=== PATIENT | female | born 1955 | race Hispanic/Latino ===

== ENCOUNTER 2017-03-16 00:25 | Inpatient (IN) | payer MEDICAID ==
[2017-03-16 00:25] VITALS: BMI 46.3
[2017-03-16 01:38] LABS: BASO # 0.1 K/uL (0.0-0.2); BASO % 0.6 % (0.0-2.0); EOS % 0.5 % (0.0-4.0)
[2017-03-16 01:42] LABS: EOS # 0.1 K/uL (0.0-0.7); HEMATOCRIT 44.5 % (34.0-47.0); LYMPH # 1.2 K/uL (1.0-4.3); MEAN CELL VOLUME 84.8 fL (81.0-99.0); MEAN CORPUSCULAR HEMOGLOBIN 28.9 pg (27.0-31.0); MEAN CORPUSCULAR HGB CONC 34.1 g/dL (33.0-37.0); MEAN PLATELET VOLUME 8.8 fL (7.2-11.7); MONO # 0.4 K/uL (0.0-0.8); MONO % 3.6 % (0.0-10.0); RED CELL DISTRIBUTION WIDTH 13.9 % (11.5-14.5); WHITE BLOOD COUNT 10.2 K/uL (4.8-10.8)
[2017-03-16] MEDS ORDERED: Iohexol 240 (50 ml) PO STA (01:47)
[2017-03-16 01:50] LABS: ALB/GLOB RATIO 1.3 (1.0-2.1); BILIRUBIN,TOTAL 1.1 mg/dL (0.2-1.3); CALCIUM 8.6 mg/dl (8.6-10.4); GFR AFRICAN-AMERICAN > 60; GLUCOSE,RANDOM 125 mg/dL (65-105); TOTAL PROTEIN 7.1 g/dL (6.3-8.3)
[2017-03-16 01:50] LABS: RBC URINE 4 /hpf (0-3); URINE BACTERIA RARE (<OCC); URINE BILIRUBIN NEGATIVE (NEGATIVE); URINE BLOOD NEGATIVE (NEGATIVE); URINE COLOR Amber (YELLOW); URINE GLUCOSE (UA) NORMAL (Normal); URINE KETONE 1+ mg/dL (NEGATIVE); URINE LEUKOCYTE ESTERASE NEG Leu/uL (Negative); URINE PROTEIN 2+ mg/dL (NEGATIVE); WBC URINE 5 /hpf (0-5)
[2017-03-16 01:51] LABS: ALKALINE PHOSPHATASE 83 U/L (38-126); ALT/SGPT 44 U/L (9-52); AST/SGOT 41 U/L (14-36); BLOOD UREA NITROGEN 21 mg/dL (7-17); CARBON DIOXIDE 27 mmol/L (22-30); CHLORIDE 97 mmol/L (98-107); POTASSIUM 3.3 mmol/L (3.6-5.2); SODIUM 135 mmol/L (132-148)
[2017-03-16] MEDS ORDERED: Iohexol 240 (50 ml) ONE (01:56)
[2017-03-16] MEDS ORDERED: Lactated Ringer's 1,000 ML IV SCH ×2 (02:15→05:15)
--- NOTE | 2017-03-16 02:29 | C.PDOC ---
History Of Present Illness 61 year old female with a Hx of HTN presents to the ER with a complaint of abdominal cramping and multiple episodes of vomiting since earlier today. Patient has a SHx of prior vertical 40 years ago and lap kamlesh 2 years ago; since then patient has had an incisional hernia to the site on right side. Denies fever or chills. last bm was Friday morning. Time Seen by Provider: 03/16/17 01:13 Chief Complaint (Nursing): Abdominal Pain History Per: Patient History/Exam Limitations: no limitations Current Symptoms Are (Timing): Still Present Radiation Of Pain To:: None Quality Of Discomfort: Cramping Associated Symptoms: Vomiting. denies: Fever, Chills Exacerbating Factors: None Alleviating Factors: None Recent travel outside of the [place]: No Past Medical History Reviewed: Historical Data, Nursing Documentation, Vital Signs Vital Signs: Last Vital Signs Temp 97.3 F L 03/16/17 15:00 Pulse 90 03/16/17 15:00 Resp 20 03/16/17 15:00 BP 137/84 03/16/17 15:00 Pulse Ox 95 03/16/17 18:47 - Medical History PMH: HTN, Pneumonia (three yrs ago) - [facility] Procedures CLOSURE SKIN & SUBCUTANEOUS NEC (01/22/07) ENDOSCOPIC REMOVAL OF STONE(S) FROM BILIARY TRACT (01/04/15) ENDOSCOPIC SPHINCTEROTOMY AND PAPILLOTOMY (01/04/15) INTRAOPER CHOLANGIOGRAM (01/04/15) LAPAROSCOPIC CHOLECYSTECTOMY (01/04/15) Family History: States: Unknown Family Hx - Social History Hx Alcohol Use: No Hx Substance Use: No - Immunization History Hx Tetanus Toxoid Vaccination: No Hx Influenza Vaccination: No Hx Pneumococcal Vaccination: No Review Of Systems Constitutional: Negative for: Fever, Chills Gastrointestinal: Positive for: Nausea, Abdominal Pain Physical Exam - Physical Exam Appears: Non-toxic Skin: Normal Color, Warm, Dry Head: Atraumatic, Normacephalic Oral Mucosa: Dry Chest: Symmetrical, No Tenderness Cardiovascular: Rhythm Regular Respiratory: Normal Breath Sounds, No Rales, No Rhonchi, No Wheezing Gastrointestinal/Abdominal: Bowel Sounds (Hyperactive), Soft, Tenderness (lower abdomen bilateral), No Distention, No Guarding, Other (Old vertical scar distal from the umbilicus with firm, mildly tender nonreducible mass to proximal right aspect.) Neurological/Psych: Oriented x3, Normal Speech, Other (No focal deficits) ED Course And Treatment - Laboratory Results Result Diagrams: 03/16/17 01:32 03/16/17 01:32 O2 Sat by Pulse Oximetry: 95 (Room air) Pulse Ox Interpretation: Normal Medical Decision Making Medical Decision Making: CT abd/pel, blood work, and urinalysis ordered. IV fluids and zofran administered. [address] scan result received from [facility]; surgical first assistant paged. [address] Noreen Krause, will admit to her service. Disposition Discussed With Dr.: Jerry Krause Doctor Will See Patient In The: Hospital - Disposition Disposition: HOME/ ROUTINE Disposition Time: 05:44 Condition: SERIOUS - Clinical Impression Clinical Impression: SBO (small bowel obstruction) - Scribe Statement The provider has reviewed the documentation as recorded by the Scribe Shantanu Jenkins All medical record entries made by the Scribe were at my direction and personally dictated by me. I have reviewed the chart and agree that the record accurately reflects my personal performance of the history, physical exam, medical decision making, and the department course for this patient. I have also personally directed, reviewed, and agree with the discharge instructions and disposition. Decision To Admit - Pt Status Changed To: Hospital Disposition Of: Inpatient - Admit Certification Admit to Inpatient:: After my assessment, the patient will require hospitalization for at least two midnights. This is because of the severity of symptoms shown, intensity of services needed, and/or the medical risk in this patient being treated as an outpatient. - InPatient: Physician Admission Certification:: for resolution of sbo - . Bed Request Type: Regular Admitting Physician: Jerry Krause Patient Diagnosis: SBO (small bowel obstruction)
[2017-03-16] MEDS ORDERED: Iodixanol 320 mg/ml 150 ml Bottle IV ONE ×2 (03:29→05:12)
--- NOTE | 2017-03-16 04:53 | CT ---
EXAM: CT Abdomen and Pelvis With Intravenous Contrast CLINICAL HISTORY: 61 years old, female; Pain; Abdominal pain; Generalized; Additional info: Abd pain TECHNIQUE: Axial computed tomography images of the abdomen and pelvis with intravenous contrast. All CT scans at this facility use one or more dose reduction techniques, viz.: automated exposure control; ma/kV adjustment per patient size (including targeted exams where dose is matched to indication; i.e. head); or iterative reconstruction technique. Coronal and sagittal reformatted images were created and reviewed. CONTRAST: 100 mL of [id number] administered intravenously. COMPARISON: No relevant prior studies available. FINDINGS: Lower thorax: Minimal atelectasis/scarring. Contrast within esophagus may represent reflux. ABDOMEN: Liver: Fatty infiltration. Gallbladder and bile ducts: Cholecystectomy. No ductal dilation. Pancreas: No ductal dilation. No mass. Spleen: No splenomegaly. Adrenals: No mass. Kidneys and ureters: No mass. No hydronephrosis. Stomach and bowel: Moderate ventral hernia containing fat, loop of small bowel, portion of transverse colon. Multiple loops of mild to moderately dilated small bowel proximal to hernia. Nondistended loops of small bowel distal to hernia. No definite mural thickening. Probable underdistention of LEFT colon. Appendix: No findings to suggest acute appendicitis. PELVIS: Bladder: Unremarkable. Reproductive: Mild lobulation of uterus. ABDOMEN and PELVIS: Intraperitoneal space: No significant fluid collection. No free air. Bones/joints: Degenerative changes of spine. No acute fracture. Soft tissues: Unremarkable. Vasculature: Unremarkable. No aneurysm. Lymph nodes: No pathologically enlarged lymph nodes. IMPRESSION: 1. Ventral hernia containing bowel with resultant obstruction. 2. Possible fibroid uterus. Consider ultrasound. 3. Incidental/non-acute findings are described above.
[2017-03-16] MEDS ORDERED: HYDROmorphone 0.5 mg/0.5 ml ISec IVP STA (05:12)
[2017-03-16] MEDS ORDERED: Lactated Ringer's 1,000 ML ONE (05:31)
[2017-03-16] MEDS ORDERED: HYDROmorphone 0.5 mg/0.5 ml ISec ONE ×2 (05:31→10:30)
--- NOTE | 2017-03-16 07:10 | CP.PCM.HP ---
History of Present Illness - History of Present Illness History of Present Illness: H&P Surgery- Dr. Krause 61F pmhx of HTN presents to [facility] ED with generalized abdominal pain w/ associated nausea and non-bloody, non-bilious vomiting that started on Friday morning. Abdominal pain is consistent and progressively got worse. During encounter patient was given pain meds and abd pain progressively got better. Friday patient reports to have a normal non-bloody bowel movement. Patient reports to having a ventral/incisional hernia for the last 2 years. No associated pain w/ hernia. currently denies: Fevers, chills, chest pain, shortness of breath, nausea, vomiting, diarrhea, headaches, numbness/tingling in extremities PMH: HTN PSH: Lap kamlesh 2 years ago, x4 ALL: NKDA SocialHx: Denies tobacco, ETOH, recreational drug use Present on Admission - Present on Admission Any Indicators Present on Admission: No Review of Systems - Review of Systems All systems: reviewed and no additional remarkable complaints except - Constitutional Constitutional: As Per HPI Past Patient History - Infectious Disease Hx of Infectious Diseases: None - Tetanus Immunizations Tetanus Immunization: Unknown - Past Medical History & Family History Past Medical History?: Yes - Past Social History Smoking Status: Never Smoked - CARDIAC Hx Hypertension: Yes - PULMONARY Hx Pneumonia: Yes (three yrs ago) - NEUROLOGICAL Hx Neurological Disorder: No - HEENT Hx HEENT Problems: No - RENAL Hx Chronic Kidney Disease: No - ENDOCRINE/METABOLIC Hx Endocrine Disorders: No - HEMATOLOGICAL/ONCOLOGICAL Hx Blood Disorders: No Hx Blood Transfusions: No - INTEGUMENTARY Hx Dermatological Problems: No - MUSCULOSKELETAL/RHEUMATOLOGICAL Hx Musculoskeletal Disorders: No Hx Falls: No - GASTROINTESTINAL Hx Gastrointestinal Disorders: No - GENITOURINARY/GYNECOLOGICAL Hx Genitourinary Disorders: No - PSYCHIATRIC Hx Substance Use: No - SURGICAL HISTORY Hx Surgeries: Yes Hx Section: Yes - ANESTHESIA Hx Anesthesia: No Hx Anesthesia Reactions: No Hx Malignant Hyperthermia: No Meds Allergies/Adverse Reactions: Allergies Allergy/AdvReac Type Severity Reaction Status Date / Time No Known Allergies Allergy Verified 01/04/15 17:05 Physical Exam - Constitutional Appears: Non-toxic, No Acute Distress - Eye Exam Eye Exam: EOMI. absent: Scleral icterus - ENT Exam ENT Exam: Mucous Membranes Moist - Respiratory Exam Respiratory Exam: NORMAL BREATHING PATTERN. absent: Accessory Muscle Use, Respiratory Distress - Cardiovascular Exam Cardiovascular Exam: +S1, +S2. absent: Bradycardia, Tachycardia - GI/Abdominal Exam GI & Abdominal Exam: Distended, Hernia, Soft. absent: Firm, Guarding, Rigid, Tenderness Additional comments: ventral hernia partially reduced at bedside. unable to get entire bowel contents back through hernia - Extremities Exam Extremities exam: Positive for: normal inspection. Negative for: calf tenderness - Neurological Exam Neurological exam: Alert, Oriented x3 - Psychiatric Exam Psychiatric exam: Normal Affect - Skin Skin Exam: Intact, Warm Results - Vital Signs Recent Vital Signs: Last Vital Signs Temp 97.7 F 03/16/17 00:30 Pulse 100 H 03/16/17 00:30 Resp 20 03/16/17 00:30 BP 126/80 03/16/17 00:30 Pulse Ox 95 03/16/17 05:45 - Labs Result Diagrams: 03/16/17 01:32 03/16/17 01:32 Labs: Laboratory Results - last 24 hr 03/16/17 03/16/17 03/16/17 01:32 01:32 01:43 WBC 10.2 RBC 5.25 H Hgb 15.2 Hct 44.5 MCV 84.8 MCH 28.9 MCHC 34.1 RDW 13.9 Plt Count 294 MPV 8.8 Neut % (Auto) 83.3 H Lymph % (Auto) 12.0 L [place] % (Auto) 3.6 Eos % (Auto) 0.5 Baso % (Auto) 0.6 Neut # 8.5 H Lymph # 1.2 [place] # 0.4 Eos # 0.1 Baso # 0.1 Sodium 135 Potassium 3.3 L Chloride 97 L Carbon Dioxide 27 Anion Gap 15 BUN 21 H Creatinine 0.5 L Est GFR ( Amer) > 60 Est GFR (Non-Af Amer) > 60 Random Glucose 125 H Calcium 8.6 Total Bilirubin 1.1 AST 41 H ALT 44 Alkaline Phosphatase 83 Total Protein 7.1 Albumin 4.1 Globulin 3.0 Albumin/Globulin Ratio 1.3 Lipase 51 Urine Color [place] Urine Clarity Hazy Urine pH 5.0 Ur Specific [place] 1.029 Urine Protein 2+ H Urine Glucose (UA) Normal Urine Ketones 1+ H Urine Blood Negative Urine Nitrate Negative Urine Bilirubin Negative Urine Urobilinogen 2.0 H Ur Leukocyte Esterase Neg Urine WBC (Auto) 5 Urine RBC (Auto) 4 H Ur Squamous Epith Cells 30 H Urine Bacteria Rare Assessment & Plan - Assessment and Plan (Free Text) Assessment: 61F w/ ventral/incisional hernia Plan: will advance to regular diet serial abdominal exams IVF GI/DVT ppx anti-emetic and pain control PRN discussed w/ Dr. Jimi Tee PGY1
[2017-03-16] MEDS: Lactated Ringer's 1,000 ML IV SCH ×2 (07:21→14:43)
[2017-03-16] MEDS: HYDROmorphone 0.5 mg/0.5 ml ISec IVP PRN ×2 (10:27→14:41)
[2017-03-16 14:13] VITALS: RESP 20
[2017-03-16 16:54] VITALS: BP 137/84; PULSE 90; TEMP 97.3
[2017-03-16 18:48] VITALS: O2SAT 95
== END 2017-03-16 20:23 | disposition home or self-care (01) | DRG 188 ==
LOC: C.ER 00:25 → C.9E 05:42 → C.3T 11:48
PROVIDERS: ADMIT Specialist; ATTEND Specialist
DX: K43.9 Ventral hernia without obstruction or gangrene (principal); K56.609 Unspecified intestinal obstruction, unspecified as to partial versus complete obstruction; I10 Essential (primary) hypertension

== ENCOUNTER 2017-03-18 12:09 | Inpatient (IN) | payer MEDICAID ==
[2017-03-18 12:10] VITALS: BMI 46.3
[2017-03-18] MEDS ORDERED: Sodium Chloride 0.9% 1,000 ML IV ONE (14:39)
--- NOTE | 2017-03-18 15:00 | RAD ---
PROCEDURE: Radiographs of the chest and abdomen (obstructive series) HISTORY: abd pain COMPARISON: CT scan of the abdomen pelvis dated 03/16/2017. No prior imaging of the chest. TECHNIQUE: AP radiograph of the chest, with upright and supine radiographs of the abdomen. FINDINGS: CHEST: Lungs: Clear. Cardiovascular: Normal size heart. No pulmonary vascular congestion. Pleura: Elevation of the right hemidiaphragm. No pleural fluid. No pneumothorax. Other findings: None. ABDOMEN AND PELVIS: Bowel: Nonspecific bowel gas pattern with gaseous distention on supine views and air-fluid levels on upright view. Free air: None. Bones: Unremarkable. Other findings: Right upper quadrant surgical clips. IMPRESSION: Nonspecific bowel-gas pattern with gas distention and air-fluid levels on upright view.
[2017-03-18 15:17] LABS: BASO % 0.3 % (0.0-2.0); EOS % 0.2 % (0.0-4.0); HEMATOCRIT 48.8 % (34.0-47.0); LYMPH # 1.5 K/uL (1.0-4.3); MEAN CELL VOLUME 84.9 fL (81.0-99.0); MEAN CORPUSCULAR HEMOGLOBIN 28.6 pg (27.0-31.0); MEAN CORPUSCULAR HGB CONC 33.7 g/dL (33.0-37.0); MEAN PLATELET VOLUME 8.5 fL (7.2-11.7); MONO # 0.7 K/uL (0.0-0.8); NRBC % 0.1 % (0.0-2.0); RED CELL DISTRIBUTION WIDTH 13.9 % (11.5-14.5); WHITE BLOOD COUNT 7.9 K/uL (4.8-10.8)
--- NOTE | 2017-03-18 15:21 | C.PDOC ---
History Of Present Illness 61 y/o female, with past history of ventral hernia with obstruction, who was recently admitted and discharged from the hospital 2 days ago, returns today complaining of vomiting, abdominal pain and distention. Denies fever, chills, diarrhea. Time Seen by Provider: 03/18/17 14:10 Chief Complaint (Nursing): Abdominal Pain History Per: Patient History/Exam Limitations: no limitations Onset/Duration Of Symptoms: Days Current Symptoms Are (Timing): Still Present Location Of Pain/Discomfort: Diffuse Radiation Of Pain To:: None Quality Of Discomfort: "Pain" Associated Symptoms: Nausea, Vomiting. denies: Fever, Chills, Diarrhea, Chest Pain, Urinary Symptoms Recent travel outside of the [place]: No Past Medical History Reviewed: Historical Data, Nursing Documentation, Vital Signs Vital Signs: Last Vital Signs Temp 98.1 F 03/23/17 00:00 Pulse 83 03/23/17 00:00 Resp 16 03/23/17 00:00 BP 113/77 03/23/17 00:00 Pulse Ox 99 03/23/17 00:00 - Medical History PMH: HTN, Pneumonia (three yrs ago) Surgical History: Cholecystectomy - [facility] Procedures CLOSURE SKIN & SUBCUTANEOUS NEC (01/22/07) ENDOSCOPIC REMOVAL OF STONE(S) FROM BILIARY TRACT (01/04/15) ENDOSCOPIC SPHINCTEROTOMY AND PAPILLOTOMY (01/04/15) INTRAOPER CHOLANGIOGRAM (01/04/15) LAPAROSCOPIC CHOLECYSTECTOMY (01/04/15) Family History: States: Unknown Family Hx - Social History Hx Alcohol Use: No Hx Substance Use: No - Immunization History Hx Tetanus Toxoid Vaccination: No Hx Influenza Vaccination: No Hx Pneumococcal Vaccination: No Review Of Systems Except As Marked, All Systems Reviewed And Found Negative. Constitutional: Negative for: Fever, Chills Cardiovascular: Negative for: Chest Pain Respiratory: Negative for: Shortness of Breath Gastrointestinal: Positive for: Nausea, Vomiting, Abdominal Pain. Negative for : Diarrhea Skin: Negative for: Rash Neurological: Negative for: Headache, Dizziness Physical Exam - Physical Exam Appears: Non-toxic, No Acute Distress Skin: Normal Color, Warm, Dry Head: Atraumatic, Normacephalic Oral Mucosa: Moist Chest: Symmetrical Cardiovascular: Rhythm Regular Respiratory: Normal Breath Sounds, No Rales, No Rhonchi, No Wheezing Gastrointestinal/Abdominal: Soft, Tenderness (diffuse), Hernia (ventral) Back: Normal Inspection Extremity: Normal ROM, Capillary Refill (< 2 sec) Neurological/Psych: Oriented x3 ED Course And Treatment - Laboratory Results Result Diagrams: 03/22/17 07:24 03/22/17 07:24 ECG: Interpreted By Me, Viewed By Me ECG Rhythm: Sinus Tachycardia ECG Interpretation: No Acute Changes Interpretation Of ECG: Normal intervals. left axis deviation, non-specific T wave changes. Rate From EC (bpm) O2 Sat by Pulse Oximetry: 94 (RA) Pulse Ox Interpretation: Normal - CT Scan/US Obstructive Series XR Other Rad Studies (CT/US): Read By Radiologist, Radiology Report Reviewed CT/US Interpretation: FINDINGS: CHEST: Lungs: Clear. Cardiovascular: Normal size heart. No pulmonary vascular congestion. Pleura: Elevation of the right hemidiaphragm. No pleural fluid. No pneumothorax. Other findings: None. ABDOMEN AND PELVIS: Bowel: Nonspecific bowel gas pattern with gaseous distention on supine views and air-fluid levels on upright view. Free air: None. Bones: Unremarkable. Other findings: Right upper quadrant surgical clips. IMPRESSION: Nonspecific bowel-gas pattern with gas distention and air- fluid levels on upright view. Medical Decision Making Medical Decision Making: Assessment: abdominal pain Plan: Labs, EKG, obstructive series x-ray. Lisa Irby IVFs Progress: regional vice president life sales paged at 17:00, will come evaluate pt. Pt evaluated by surgical supply assistant. Will be admitted for abdominal pain/hernia under Dr. Krause's service. Disposition - Disposition Disposition: HOSPITALIZED Disposition Time: 18:20 Condition: FAIR - Clinical Impression Clinical Impression: Abdominal pain, SBO (small bowel obstruction) - Scribe Statement The provider has reviewed the documentation as recorded by the Scribe SM All medical record entries made by the Scribe were at my direction and personally dictated by me. I have reviewed the chart and agree that the record accurately reflects my personal performance of the history, physical exam, medical decision making, and the department course for this patient. I have also personally directed, reviewed, and agree with the discharge instructions and disposition.
[2017-03-18] MEDS ORDERED: Morphine 4 MG/ML VIAL ONE ×2 (15:35→18:14)
[2017-03-18 16:25] LABS: ALB/GLOB RATIO 1.1 (1.0-2.1); ALKALINE PHOSPHATASE 86 U/L (38-126); ALT/SGPT 73 U/L (9-52); AST/SGOT 50 U/L (14-36); BILIRUBIN,TOTAL 0.7 mg/dL (0.2-1.3); BLOOD UREA NITROGEN 26 mg/dL (7-17); CALCIUM 8.7 mg/dl (8.6-10.4); CARBON DIOXIDE 26 mmol/L (22-30); CHLORIDE 94 mmol/L (98-107); GFR AFRICAN-AMERICAN > 60; GLUCOSE,RANDOM 111 mg/dL (65-105); POTASSIUM 3.1 mmol/L (3.6-5.2); SODIUM 134 mmol/L (132-148); TOTAL PROTEIN 8.1 g/dL (6.3-8.3)
[2017-03-18 16:51] LABS: RBC URINE 2 /hpf (0-3); URINE BACTERIA OCC (<OCC); URINE BILIRUBIN NEGATIVE (NEGATIVE); URINE BLOOD NEGATIVE (NEGATIVE); URINE COLOR YELLOW (YELLOW); URINE GLUCOSE (UA) NORMAL (Normal); URINE KETONE 1+ mg/dL (NEGATIVE); URINE LEUKOCYTE ESTERASE NEG Leu/uL (Negative); URINE PROTEIN 2+ mg/dL (NEGATIVE); WBC URINE 3 /hpf (0-5)
[2017-03-18] MEDS ORDERED: Morphine 4 MG/ML VIAL IV STA (18:29)
--- NOTE | 2017-03-18 18:33 | CP.PCM.CON ---
History of Present Illness - History of Present Illness History of Present Illness: General Surgery Consult Note for Dr. Krause Reason for Consult: Abdominal pain and nausea/vomiting HPI: 61F with PMHx of HTN presents to the ED with abdominal pain and nausea/ vomiting. Patient reports to having 8 episodes of vomiting today. She only has eaten apple sauce. Patient stated she was in the hospital this weekend for similar complaint. She also stated she had three episodes of diarrhea yesterday. She describes pain was 8-9/10 and is now currently 7/10. She describes pain as constant and cramping located diffusely in abdomen. Eating and drinking exacerbates her symptoms while nothing alleviates them. Denies fever/chills, cp, sob, palpitations, constipation, incontinence. PMH: HTN, Ventral Hernia PSH: Kristina 2015, c-sectionx4 Med: Atenolol Allergies: denies SH: denies alcohol, tobacco, or illicit drug use. Review of Systems - Review of Systems All systems: reviewed and no additional remarkable complaints except (as per HPI ) Past Patient History - Infectious Disease Hx of Infectious Diseases: None - Tetanus Immunizations Tetanus Immunization: Unknown - Past Medical History & Family History Past Medical History?: Yes - Past Social History Smoking Status: Never Smoked - CARDIAC Hx Hypertension: Yes - PULMONARY Hx Pneumonia: Yes (three yrs ago) - NEUROLOGICAL Hx Neurological Disorder: No - HEENT Hx HEENT Problems: No - RENAL Hx Chronic Kidney Disease: No - ENDOCRINE/METABOLIC Hx Endocrine Disorders: No - HEMATOLOGICAL/ONCOLOGICAL Hx Blood Disorders: No Hx Blood Transfusions: No - INTEGUMENTARY Hx Dermatological Problems: No - MUSCULOSKELETAL/RHEUMATOLOGICAL Hx Musculoskeletal Disorders: No Hx Falls: No - GASTROINTESTINAL Hx Gastrointestinal Disorders: No Other/Comment: hernia - GENITOURINARY/GYNECOLOGICAL Hx Genitourinary Disorders: No - PSYCHIATRIC Hx Substance Use: No - SURGICAL HISTORY Hx Cholecystectomy: Yes - ANESTHESIA Hx Anesthesia: Yes Hx Anesthesia Reactions: No Meds Allergies/Adverse Reactions: Allergies Allergy/AdvReac Type Severity Reaction Status Date / Time No Known Allergies Allergy Verified 01/04/15 17:05 Physical Exam - Constitutional Appears: Non-toxic, No Acute Distress - Head Exam Head Exam: ATRAUMATIC, NORMAL INSPECTION - Eye Exam Eye Exam: EOMI Pupil Exam: NORMAL ACCOMODATION - ENT Exam ENT Exam: Mucous Membranes Moist - Respiratory Exam Respiratory Exam: NORMAL BREATHING PATTERN. absent: Respiratory Distress - Cardiovascular Exam Cardiovascular Exam: Tachycardia, REGULAR RHYTHM - GI/Abdominal Exam GI & Abdominal Exam: Distended, Hernia (incisional ventral hernia), Soft. absent: Firm, Guarding, Rebound, Tenderness Additional comments: mildine scar, history of 4 c -sections and cholecystectomy - Rectal Exam Rectal Exam: Deferred - Extremities Exam Extremities exam: Positive for: normal capillary refill, pedal pulses present. Negative for: calf tenderness - Back Exam Back exam: absent: CVA tenderness (L), CVA tenderness (R) - Neurological Exam Neurological exam: Alert, CN II-XII Intact, Oriented x3 - Psychiatric Exam Psychiatric exam: Normal Affect, Normal Mood - Skin Skin Exam: Dry, Intact, Warm Results - Vital Signs Recent Vital Signs: Last Vital Signs Temp 97.5 F L 03/18/17 12:32 Pulse 109 H 03/18/17 17:30 Resp 18 03/18/17 17:30 BP 155/106 H 03/18/17 17:30 Pulse Ox 94 L 03/18/17 18:13 - Labs Result Diagrams: 03/18/17 15:09 03/18/17 15:09 Labs: Laboratory Results - last 24 hr 03/18/17 03/18/17 03/18/17 15:09 15:09 16:43 WBC 7.9 RBC 5.74 H Hgb 16.4 H Hct 48.8 H MCV 84.9 MCH 28.6 MCHC 33.7 RDW 13.9 Plt Count 428 H D MPV 8.5 Neut % (Auto) 71.5 Lymph % (Auto) 19.0 L [place] % (Auto) 9.0 Eos % (Auto) 0.2 Baso % (Auto) 0.3 Neut # 5.7 Lymph # 1.5 [place] # 0.7 Eos # 0.0 Baso # 0.0 Sodium 134 Potassium 3.1 L Chloride 94 L Carbon Dioxide 26 Anion Gap 18 BUN 26 H Creatinine 0.6 L Est GFR ( Amer) > 60 Est GFR (Non-Af Amer) > 60 Random Glucose 111 H Calcium 8.7 Total Bilirubin 0.7 AST 50 H D ALT 73 H D Alkaline Phosphatase 86 Troponin I < 0.0120 Total Protein 8.1 Albumin 4.2 Globulin 3.9 Albumin/Globulin Ratio 1.1 Lipase 32 Urine Color Yellow Urine Clarity Hazy Urine pH 5.0 Ur Specific [place] 1.031 H Urine Protein 2+ H Urine Glucose (UA) Normal Urine Ketones 1+ H Urine Blood Negative Urine Nitrate Negative Urine Bilirubin Negative Urine Urobilinogen 2.0 H Ur Leukocyte Esterase Neg Urine WBC (Auto) 3 Urine RBC (Auto) 2 Ur Squamous Epith Cells 16 H Urine Bacteria Occ H Assessment & Plan - Assessment and Plan (Free Text) Plan: 61 F with abdominal pain and nausea/vomiting -NPO -IV fluids -Replete potassium -Analgesics/Anti-emetics -Serial abdominal exams -Tentatively Plan for OR tomorrow -Will discuss with Dr. Jimi Carlos PGY1
--- NOTE | 2017-03-18 19:20 | CP.PCM.HP ---
History of Present Illness - History of Present Illness History of Present Illness: General Surgery Consult Note for Dr. Krause Reason for Consult: Abdominal pain and nausea/vomiting HPI: 61F with PMHx of HTN presents to the ED with abdominal pain and nausea/ vomiting. Patient reports to having 8 episodes of vomiting today. She only has eaten apple sauce. Patient stated she was in the hospital this weekend for similar complaint. She also stated she had three episodes of diarrhea yesterday. She describes pain was 8-9/10 and is now currently 7/10. She describes pain as constant and cramping located diffusely in abdomen. Eating and drinking exacerbates her symptoms while nothing alleviates them. Denies fever/chills, cp, sob, palpitations, constipation, incontinence. PMH: HTN, Ventral Hernia PSH: Kristina 2015, c-sectionx4 Med: Atenolol Allergies: denies SH: denies alcohol, tobacco, or illicit drug use Present on Admission - Present on Admission Any Indicators Present on Admission: No History of DVT/PE: No History of Uncontrolled Diabetes: No Urinary Catheter: No Decubitus Ulcer Present: No Review of Systems - Review of Systems All systems: reviewed and no additional remarkable complaints except (abdominal pain, nausea/vomiting, diarrhea) Past Patient History - Infectious Disease Hx of Infectious Diseases: None - Tetanus Immunizations Tetanus Immunization: Unknown - Past Medical History & Family History Past Medical History?: Yes - Past Social History Smoking Status: Never Smoked - CARDIAC Hx Hypertension: Yes - PULMONARY Hx Pneumonia: Yes (three yrs ago) - NEUROLOGICAL Hx Neurological Disorder: No - HEENT Hx HEENT Problems: No - RENAL Hx Chronic Kidney Disease: No - ENDOCRINE/METABOLIC Hx Endocrine Disorders: No - HEMATOLOGICAL/ONCOLOGICAL Hx Blood Disorders: No Hx Blood Transfusions: No - INTEGUMENTARY Hx Dermatological Problems: No - MUSCULOSKELETAL/RHEUMATOLOGICAL Hx Musculoskeletal Disorders: No Hx Falls: No - GASTROINTESTINAL Hx Gastrointestinal Disorders: No Other/Comment: hernia - GENITOURINARY/GYNECOLOGICAL Hx Genitourinary Disorders: No - PSYCHIATRIC Hx Substance Use: No - SURGICAL HISTORY Hx Cholecystectomy: Yes - ANESTHESIA Hx Anesthesia: Yes Hx Anesthesia Reactions: No Meds Allergies/Adverse Reactions: Allergies Allergy/AdvReac Type Severity Reaction Status Date / Time No Known Allergies Allergy Verified 01/04/15 17:05 Physical Exam - Constitutional Appears: Non-toxic, No Acute Distress - Head Exam Head Exam: ATRAUMATIC, NORMOCEPHALIC - Eye Exam Eye Exam: EOMI, Normal appearance Pupil Exam: PERRL - ENT Exam ENT Exam: Mucous Membranes Dry - Neck Exam Neck exam: Positive for: Full Rom - Respiratory Exam Respiratory Exam: NORMAL BREATHING PATTERN - Cardiovascular Exam Cardiovascular Exam: Tachycardia - GI/Abdominal Exam GI & Abdominal Exam: Distended, Hernia (incisional ventral hernia), Soft, Tenderness (mild in upper abdomen). absent: Firm, Guarding, Rebound Additional comments: mildine scar, history of 4 c -sections and cholecystectomy - Extremities Exam Extremities exam: Positive for: normal capillary refill, pedal pulses present - Back Exam Back exam: absent: CVA tenderness (L), CVA tenderness (R) - Neurological Exam Neurological exam: Alert, CN II-XII Intact, Oriented x3 - Psychiatric Exam Psychiatric exam: Normal Affect, Normal Mood - Skin Skin Exam: Dry, Intact, Normal Color, Warm Results - Vital Signs Recent Vital Signs: Last Vital Signs Temp 97.5 F L 03/18/17 12:32 Pulse 107 H 03/18/17 19:01 Resp 18 03/18/17 19:01 BP 177/104 H 03/18/17 19:01 Pulse Ox 95 03/18/17 19:01 - Labs Result Diagrams: 03/18/17 15:09 03/18/17 15:09 Labs: Laboratory Results - last 24 hr 03/18/17 03/18/17 03/18/17 15:09 15:09 16:43 WBC 7.9 RBC 5.74 H Hgb 16.4 H Hct 48.8 H MCV 84.9 MCH 28.6 MCHC 33.7 RDW 13.9 Plt Count 428 H D MPV 8.5 Neut % (Auto) 71.5 Lymph % (Auto) 19.0 L Mcdonald % (Auto) 9.0 Eos % (Auto) 0.2 Baso % (Auto) 0.3 Neut # 5.7 Lymph # 1.5 Mcdonald # 0.7 Eos # 0.0 Baso # 0.0 Sodium 134 Potassium 3.1 L Chloride 94 L Carbon Dioxide 26 Anion Gap 18 BUN 26 H Creatinine 0.6 L Est GFR ( Amer) > 60 Est GFR (Non-Af Amer) > 60 Random Glucose 111 H Calcium 8.7 Total Bilirubin 0.7 AST 50 H D ALT 73 H D Alkaline Phosphatase 86 Troponin I < 0.0120 Total Protein 8.1 Albumin 4.2 Globulin 3.9 Albumin/Globulin Ratio 1.1 Lipase 32 Urine Color Yellow Urine Clarity Hazy Urine pH 5.0 Ur Specific [place] 1.031 H Urine Protein 2+ H Urine Glucose (UA) Normal Urine Ketones 1+ H Urine Blood Negative Urine Nitrate Negative Urine Bilirubin Negative Urine Urobilinogen 2.0 H Ur Leukocyte Esterase Neg Urine WBC (Auto) 3 Urine RBC (Auto) 2 Ur Squamous Epith Cells 16 H Urine Bacteria Occ H Assessment & Plan - Assessment and Plan (Free Text) Plan: 61 F with abdominal pain and nausea/vomiting -NPO -IV fluids -Replete potassium -Analgesics/Anti-emetics -Serial abdominal exams -Tentatively Plan for OR tomorrow -Will discuss with Dr. Jimi Carlos PGY1
[2017-03-18 19:29] LABS: MAGNESIUM 1.9 mg/dL (1.6-2.3); PHOSPHOROUS 3.6 mg/dL (2.5-4.5)
[2017-03-19] MEDS: Potassium Chl 40 mEq in D5-1/2 1,000 ML IV SCH ×6 (00:46→20:30)
[2017-03-19 07:17] LABS: BASO % 0.5 % (0.0-2.0); EOS # 0.1 K/uL (0.0-0.7); EOS % 1.1 % (0.0-4.0); HEMATOCRIT 43.2 % (34.0-47.0); LYMPH # 1.6 K/uL (1.0-4.3); LYMPH % 20.6 % (20.0-40.0); MEAN CELL VOLUME 85.5 fL (81.0-99.0); MEAN CORPUSCULAR HEMOGLOBIN 28.8 pg (27.0-31.0); MEAN CORPUSCULAR HGB CONC 33.7 g/dL (33.0-37.0); MEAN PLATELET VOLUME 8.3 fL (7.2-11.7); MONO # 0.8 K/uL (0.0-0.8); MONO % 9.9 % (0.0-10.0); NRBC % 0.1 % (0.0-2.0); RED CELL DISTRIBUTION WIDTH 14.1 % (11.5-14.5); WHITE BLOOD COUNT 7.7 K/uL (4.8-10.8)
[2017-03-19 07:18] LABS: INR 1.2
[2017-03-19 07:52] LABS: ALB/GLOB RATIO 1.2 (1.0-2.1); ALKALINE PHOSPHATASE 72 U/L (38-126); ALT/SGPT 76 U/L (9-52); AST/SGOT 62 U/L (14-36); BILIRUBIN,TOTAL 0.8 mg/dL (0.2-1.3); BLOOD UREA NITROGEN 25 mg/dL (7-17); CALCIUM 7.6 mg/dl (8.6-10.4); CARBON DIOXIDE 24 mmol/L (22-30); CHLORIDE 100 mmol/L (98-107); GFR AFRICAN-AMERICAN > 60; GLUCOSE,RANDOM 122 mg/dL (65-105); POTASSIUM 3.9 mmol/L (3.6-5.2); SODIUM 134 mmol/L (132-148); TOTAL PROTEIN 6.1 g/dL (6.3-8.3)
[2017-03-19] MEDS ORDERED: Propofol 10 mg/ml Inj (20 ML) ONE (11:53)
[2017-03-19] MEDS ORDERED: ceFAZolin IV 2 gm in Dextrose 2 GM/50 ML BAG IVPB ONE (12:17)
[2017-03-19] MEDS ORDERED: Lactated Ringer's 1,000 ML IV ONE ×2 (12:35→14:14)
[2017-03-19] MEDS ORDERED: Neostigmine Methylsulfate 3mg/3ml Syringe IV ONE (13:12)
[2017-03-19] MEDS: HYDROmorphone 0.5 mg/0.5 ml ISec IVP PRN ×3 (14:47→20:30)
--- NOTE | 2017-03-19 15:18 | PCM.SURG1 ---
Surgeon's Initial Post Op Note - Surgeon's Notes Surgeon: Noreen Krause [place] Sheriff: Mark Albright Type of Anesthesia: General Endo Anesthesia Administered By: Dr Moses/C WPF DEVELOPER JULITO Pre-Operative Diagnosis: Incarcerated incisional hernia with obstruction Operative Findings: Focally ecchymotic transverse colon in hernia sac. Repair with [id number] ventrio patch. Post-Operative Diagnosis: Incarcerated incisional hernia with obstruction Operation Performed: Incisional hernia repair with mesh Specimen/Specimens Removed: hernia sac Estimated Blood Loss: EBL {In ML}: 100 Blood Products Given: N/A Drains Used: Kolby Post-Op Condition: Good Date of Surgery/Procedure: 03/19/17 Time of Surgery/Procedure: 15:20
--- NOTE | 2017-03-19 15:20 | PCM.SURG1 ---
Surgeon's Initial Post Op Note - Surgeon's Notes Surgeon: Dr. Krause Audit Spec: Dr. Albright PGY-3, Dr. Flores PGY-3, Miguel Rishabh III Type of Anesthesia: General Endo Pre-Operative Diagnosis: Ventral hernia Operative Findings: Ventral and umbilical hernia Post-Operative Diagnosis: Ventral and umbilical hernia Operation Performed: Ventral hernia repair with mesh Specimen/Specimens Removed: hernia sac Estimated Blood Loss: EBL {In ML}: 100 Blood Products Given: N/A Drains Used: Kolby Post-Op Condition: Fair Date of Surgery/Procedure: 03/19/17 Time of Surgery/Procedure: 15:18
[2017-03-20] MEDS ORDERED: Acetaminophen IV 1,000 MG in Premixed IV 1 EA IV SCH
[2017-03-20] MEDS: HYDROmorphone 0.5 mg/0.5 ml ISec IVP PRN ×3 (00:45→21:00)
[2017-03-20] MEDS: Potassium Chl 40 mEq in D5-1/2 1,000 ML IV SCH (03:33)
[2017-03-20 07:29] LABS: BASO % 0.4 % (0.0-2.0); EOS % 0.5 % (0.0-4.0); LYMPH # 1.5 K/uL (1.0-4.3); MEAN CELL VOLUME 85.6 fL (81.0-99.0); MEAN CORPUSCULAR HEMOGLOBIN 29.1 pg (27.0-31.0); MEAN PLATELET VOLUME 8.4 fL (7.2-11.7); MONO # 1.1 K/uL (0.0-0.8); RED CELL DISTRIBUTION WIDTH 14.4 % (11.5-14.5); WHITE BLOOD COUNT 9.8 K/uL (4.8-10.8)
[2017-03-20 07:51] LABS: ALB/GLOB RATIO 1.3 (1.0-2.1); ALKALINE PHOSPHATASE 63 U/L (38-126); ALT/SGPT 55 U/L (9-52); AST/SGOT 37 U/L (14-36); BILIRUBIN,TOTAL 0.8 mg/dL (0.2-1.3); BLOOD UREA NITROGEN 17 mg/dL (7-17); CALCIUM 7.5 mg/dl (8.6-10.4); CARBON DIOXIDE 25 mmol/L (22-30); CHLORIDE 104 mmol/L (98-107); GFR AFRICAN-AMERICAN > 60; GLUCOSE,RANDOM 117 mg/dL (65-105); POTASSIUM 4.8 mmol/L (3.6-5.2); SODIUM 138 mmol/L (132-148); TOTAL PROTEIN 5.2 g/dL (6.3-8.3)
--- NOTE | 2017-03-20 10:38 | CARD ---
APPROVED REPORT EKG Measurement Heart [id number] <Conclusion> Sinus tachycardia ST & T wave abnormality, consider lateral ischemia Abnormal ECG
--- NOTE | 2017-03-20 16:32 | CP.PCM.PN ---
Subjective - Date & Time of Evaluation Date of Evaluation: 03/20/17 Time of Evaluation: 07:00 - Subjective Subjective: GENERAL SURGERY PROGRESS NOTE FOR DR. MEDINA Patient seen and examined at bedside. She states that she is passing flatus but has not had a BM since surgery. Pain controlled. She denies nausea or vomiting and is requesting something to eat. NG tube was removed during AM rounds. Objective - Vital Signs/Intake and Output Vital Signs (last 24 hours): Temp Pulse Resp BP Pulse Ox 97.8 F 84 20 143/59 L 93 L 03/20/17 08:00 03/20/17 08:00 03/20/17 08:00 03/20/17 08:00 03/20/17 08:00 Intake and Output: 03/20/17 03/20/17 06:59 18:59 Intake Total 1200 Output Total 180 100 Balance 1020 -100 - Medications Medications: Current Medications Atenolol (Tenormin) 25 mg PO DAILY [facility] Last Admin: 03/20/17 10:09 Dose: 25 mg Enoxaparin Sodium (Lovenox) 40 mg SC DAILY [facility] Famotidine (Pepcid) 20 mg PO BID [facility] Hydromorphone HCl (Dilaudid) 0.5 mg IVP Q4H PRN PRN Reason: Pain, moderate (4-7) Last Admin: 03/20/17 10:59 Dose: 0.5 mg Ondansetron HCl (Zofran Inj) 4 mg IVP Q6H PRN PRN Reason: Nausea/Vomiting Last Admin: 03/19/17 05:17 Dose: 4 mg - Labs Labs: 03/20/17 07:06 03/20/17 07:06 PT 13.5 SECONDS (9.7-12.2) H 03/19/17 06:55 INR 1.2 03/19/17 06:55 APTT 29 SECONDS (21-34) 03/19/17 06:55 - Constitutional Appears: Well, Non-toxic, No Acute Distress - Eye Exam Eye Exam: EOMI, Normal appearance - Respiratory Exam Respiratory Exam: NORMAL BREATHING PATTERN. absent: Respiratory Distress - Cardiovascular Exam Cardiovascular Exam: +S1, +S2 - GI/Abdominal Exam GI & Abdominal Exam: Soft. 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 Jimi Albright PGY-3
--- NOTE | 2017-03-20 19:08 | OP ---
PROCEDURE DATE: 03/19/2017 PREOPERATIVE DIAGNOSES: Incarcerated incisional hernia with obstruction. POSTOPERATIVE DIAGNOSES: Incarcerated incisional hernia with obstruction. PROCEDURE: Incisional hernia repair with mesh. SURGEON: Jerry Krause MD. CREDIT OPERATIONS SPECIALIST: Dr. Albright and Dr. Flores. TYPE OF ANESTHESIA: General. ANESTHESIA ADMINISTERED BY: Dr. Moses and [employer], . DESCRIPTION OF OPERATION: With the patient in the supine position under adequate general anesthesia, the abdomen was prepped and draped in the usual sterile manner. The patient was noted to have a healed lower midline incision and a hernia located just to the right of the umbilicus and extended partially upward above the umbilicus. The hernia reduced spontaneously on the induction of anesthesia. A longitudinal incision was made along the right side of the umbilicus from above until just below the umbilicus and a hernia sac was identified just below the full-thickness skin, which contained some dark bloody fluid. A segment of omentum was identified within the hernia as well as a portion of transverse colon, which was mildly ecchymotic, but with no gross gangrene and with observation and reduction, this was noted to improve. The hernial defect was noted to be approximately 4.5 inches in diameter and round with an additional small defect at the umbilicus itself, which was 1 cm from the larger defect. Omentum was removed from the umbilical defect and the omental adhesions were cleared circumferentially from the anterior abdominal wall as well as soft omental adhesions to the lower midline incision for an adequate distance below the are of the hernia and as the patient had a BMI of over 40, a large Ventrio Hernia Patch was selected 15 x 20 cm to widely cover the area of the defect and the anterior wall. The skin was protected and the herniated sac was excised from the subcutaneous tissue to provide a clean fascial edge circumferentially and the patch was then placed within the peritoneal cavity and spread out widely to cover the defect and to maintain adherence to the anterior abdominal wall. The outer skirt of the patch was used to apply tacks to maintain the position along the abdominal wall circumferentially with a special attention to the upper aspect of the repair and the inner skirt of the hernia patch was then sutured circumferentially to the edges of the fascial defect using interrupted sutures of 0 Prolene to maintain firmer repair of the actual hernia. When this had been completed, a 15-Kolby drain was placed in the subcutaneous layer above the mesh and brought out through a stab incision to the right of the main incision and closure was performed in 2 layers with subcutaneous tissue approximated with 3-0 Vicryl interrupted sutures and the skin was then closed with cornelio. Dry sterile dressing was applied. The patient tolerated the procedure well and transferred to recovery room in stable condition. Estimated blood loss for the procedure was 100 mL. Jerry Krause MD [facility] # [id number]
[2017-03-21] MEDS: HYDROmorphone 0.5 mg/0.5 ml ISec IVP PRN (02:35)
[2017-03-21 08:07] LABS: BASO # 0.1 K/uL (0.0-0.2); BASO % 0.6 % (0.0-2.0); EOS # 0.4 K/uL (0.0-0.7); EOS % 3.9 % (0.0-4.0); HEMATOCRIT 40.1 % (34.0-47.0); LYMPH # 1.8 K/uL (1.0-4.3); LYMPH % 16.8 % (20.0-40.0); MEAN CORPUSCULAR HEMOGLOBIN 28.7 pg (27.0-31.0); MEAN PLATELET VOLUME 8.6 fL (7.2-11.7); MONO # 0.9 K/uL (0.0-0.8); MONO % 8.2 % (0.0-10.0); RED CELL DISTRIBUTION WIDTH 14.2 % (11.5-14.5); WHITE BLOOD COUNT 10.7 K/uL (4.8-10.8)
[2017-03-21 08:24] LABS: ALB/GLOB RATIO 1.2 (1.0-2.1); ALKALINE PHOSPHATASE 59 U/L (38-126); ALT/SGPT 48 U/L (9-52); AST/SGOT 23 U/L (14-36); BILIRUBIN,TOTAL 0.7 mg/dL (0.2-1.3); BLOOD UREA NITROGEN 19 mg/dL (7-17); CALCIUM 7.5 mg/dl (8.6-10.4); CARBON DIOXIDE 24 mmol/L (22-30); CHLORIDE 109 mmol/L (98-107); GFR AFRICAN-AMERICAN > 60; GLUCOSE,RANDOM 106 mg/dL (65-105); POTASSIUM 4.3 mmol/L (3.6-5.2); SODIUM 139 mmol/L (132-148); TOTAL PROTEIN 5.3 g/dL (6.3-8.3)
--- NOTE | 2017-03-21 09:20 | CP.PCM.PN ---
Subjective - Date & Time of Evaluation Date of Evaluation: 03/21/17 Time of Evaluation: 06:45 - Subjective Subjective: Gen Sx: Dr Krause Pt S&E. POD#2 s/p ventral hernia. Pt reports she is doing well, minimal discomfort. Tolerating CLD, but no flatus or BM. States she has excessive burping. Has been OOB to chair. Using IS up to 750cc. Amy: 240/12 hours Objective - Vital Signs/Intake and Output Vital Signs (last 24 hours): Temp Pulse Resp BP Pulse Ox 98.2 F 103 H 20 131/88 95 03/21/17 07:48 03/21/17 07:48 03/21/17 07:48 03/21/17 07:48 03/21/17 07:48 Intake and Output: 03/21/17 03/21/17 06:59 18:59 Intake Total 250 Output Total 340 Balance -90 - Medications Medications: Current Medications Atenolol (Tenormin) 25 mg PO DAILY [facility] Last Admin: 03/20/17 10:09 Dose: 25 mg Enoxaparin Sodium (Lovenox) 40 mg SC DAILY [facility] Famotidine (Pepcid) 20 mg PO BID [facility] Last Admin: 03/20/17 17:43 Dose: 20 mg Ondansetron HCl (Zofran Inj) 4 mg IVP Q6H PRN PRN Reason: Nausea/Vomiting Last Admin: 03/19/17 05:17 Dose: 4 mg Oxycodone/Acetaminophen (Percocet 5/325 Mg Tab) 1 tab PO Q4H PRN PRN Reason: Pain, moderate (4-7) Stop: 03/24/17 09:16 - Labs Labs: 03/21/17 07:54 03/21/17 07:54 PT 13.5 SECONDS (9.7-12.2) H 03/19/17 06:55 INR 1.2 03/19/17 06:55 APTT 29 SECONDS (21-34) 03/19/17 06:55 - Constitutional Appears: Non-toxic, No Acute Distress - ENT Exam ENT Exam: Mucous Membranes Moist - Respiratory Exam Respiratory Exam: absent: Accessory Muscle Use, Respiratory Distress - Cardiovascular Exam Cardiovascular Exam: REGULAR RHYTHM. absent: Tachycardia - GI/Abdominal Exam GI & Abdominal Exam: Soft, Tenderness (post-op). absent: Distended, Firm, Guarding Additional comments: dressing c/d/i, abdominal binder in place amy drain w/ 240/24 hours - Neurological Exam Neurological Exam: Alert, Awake, Oriented x3 - Psychiatric Exam Psychiatric exam: Normal Affect, Normal Mood Assessment and Plan - Assessment and Plan (Free Text) Assessment: 61F POD#2 s/p incarcerated ventral hernia repair with mesh Plan: d/c dilaudid Perc Q4H PRN encourage IS use and ambulation do not advance diet until passes flatus amy will remain in upon discharge will monitor closely d/w Dr Jimi Cash, PGY3
[2017-03-21] MEDS: Enoxaparin 40 mg Syringe SC SCH (10:22)
[2017-03-21] MEDS: Oxycodone/Acetaminophen 5/325 mg Tab PO PRN ×2 (10:24→18:01)
[2017-03-21] MEDS ORDERED: DiphenhydrAMINE 50 mg/ml Inj IVP PRN (18:07)
[2017-03-22] MEDS: Oxycodone/Acetaminophen 5/325 mg Tab PO PRN ×2 (03:28→14:49)
[2017-03-22 07:39] LABS: BASO # 0.1 K/uL (0.0-0.2); BASO % 0.6 % (0.0-2.0); EOS # 0.6 K/uL (0.0-0.7); EOS % 4.8 % (0.0-4.0); HEMATOCRIT 35.7 % (34.0-47.0); LYMPH # 2.7 K/uL (1.0-4.3); LYMPH % 21.2 % (20.0-40.0); MEAN CELL VOLUME 85.7 fL (81.0-99.0); MEAN CORPUSCULAR HEMOGLOBIN 28.2 pg (27.0-31.0); MEAN CORPUSCULAR HGB CONC 32.9 g/dL (33.0-37.0); MEAN PLATELET VOLUME 8.4 fL (7.2-11.7); MONO # 1.1 K/uL (0.0-0.8); MONO % 8.7 % (0.0-10.0); NRBC % 0.1 % (0.0-2.0); RED CELL DISTRIBUTION WIDTH 14.2 % (11.5-14.5); WHITE BLOOD COUNT 12.6 K/uL (4.8-10.8)
[2017-03-22 08:23] LABS: ALB/GLOB RATIO 1.2 (1.0-2.1); ALKALINE PHOSPHATASE 62 U/L (38-126); ALT/SGPT 43 U/L (9-52); AST/SGOT 35 U/L (14-36); BILIRUBIN,TOTAL 0.6 mg/dL (0.2-1.3); BLOOD UREA NITROGEN 19 mg/dL (7-17); CALCIUM 7.5 mg/dl (8.6-10.4); CARBON DIOXIDE 24 mmol/L (22-30); CHLORIDE 106 mmol/L (98-107); GFR AFRICAN-AMERICAN > 60; GLUCOSE,RANDOM 99 mg/dL (65-105); POTASSIUM 4.3 mmol/L (3.6-5.2); SODIUM 135 mmol/L (132-148); TOTAL PROTEIN 5.1 g/dL (6.3-8.3)
[2017-03-22] MEDS: Enoxaparin 40 mg Syringe SC SCH (09:42)
--- NOTE | 2017-03-22 14:38 | CP.PCM.PN ---
Addendum entered and electronically signed by Jerry Krause MD 03/22/17 17: 27: Passing flatus, tolerating liquids. Pain better controlled, ambulating with walker. Wound clean. DENI output minimal-will remove prior to discharge. Original Note: Subjective - Date & Time of Evaluation Date of Evaluation: 03/22/17 Time of Evaluation: 08:00 - Subjective Subjective: General surgery progress note for Dr. Krause-Renea Bautista, PGY-1 Pt S & E at bedside this AM. Pt reports flatus overnight, no BM, is OOBTC, ambulating with assistance. Feels that abdominal binder is helping with post op pain, pain is well controlled. Denies N & V, F & C, other complaints. Objective - Vital Signs/Intake and Output Vital Signs (last 24 hours): Temp Pulse Resp BP Pulse Ox 97.9 F 86 20 136/80 96 03/22/17 00:15 03/22/17 00:15 03/22/17 00:15 03/22/17 00:15 03/22/17 00:15 Intake and Output: 03/22/17 03/22/17 06:59 18:59 Intake Total 200 Output Total 15 Balance 185 - Medications Medications: Current Medications Atenolol (Tenormin) 25 mg PO DAILY [facility] Last Admin: 03/22/17 09:43 Dose: 25 mg Diphenhydramine HCl (Benadryl) 25 mg IVP HS PRN PRN Reason: Sleep Last Admin: 03/21/17 21:23 Dose: 25 mg Enoxaparin Sodium (Lovenox) 40 mg SC DAILY [facility] Last Admin: 03/22/17 09:42 Dose: 40 mg Famotidine (Pepcid) 20 mg PO BID [facility] Last Admin: 03/22/17 09:43 Dose: 20 mg Ondansetron HCl (Zofran Inj) 4 mg IVP Q6H PRN PRN Reason: Nausea/Vomiting Last Admin: 03/19/17 05:17 Dose: 4 mg Oxycodone/Acetaminophen (Percocet 5/325 Mg Tab) 1 tab PO Q4H PRN PRN Reason: Pain, moderate (4-7) Stop: 03/24/17 09:16 Last Admin: 03/22/17 03:28 Dose: 1 tab - Labs Labs: 03/22/17 07:24 03/22/17 07:24 PT 13.5 SECONDS (9.7-12.2) H 03/19/17 06:55 INR 1.2 03/19/17 06:55 APTT 29 SECONDS (21-34) 03/19/17 06:55 - Constitutional Appears: Non-toxic, No Acute Distress - Head Exam Head Exam: ATRAUMATIC, NORMAL INSPECTION, NORMOCEPHALIC - Eye Exam Eye Exam: EOMI, Normal appearance - ENT Exam ENT Exam: Mucous Membranes Moist, Normal Exam - Neck Exam Neck Exam: Full ROM, Normal Inspection - Respiratory Exam Respiratory Exam: Clear to Ausculation Bilateral, NORMAL BREATHING PATTERN - Cardiovascular Exam Cardiovascular Exam: REGULAR RHYTHM, +S1, +S2 - GI/Abdominal Exam GI & Abdominal Exam: Soft, Tenderness (over incision site. ), Hypoactive Bowel Sounds. absent: Distended, Firm, Guarding, Rigid, Rebound Additional comments: abdominal binder in place, no strike through. Drain with ~25cc serosanguinous output to it. Dressing over midline incision removed, cornelio in place, incision well approximated, no drainage, erythema or dehisence. Replaced loose dressing over cornelio. - Extremities Exam Extremities Exam: Pedal Edema (bilaterally). absent: Normal Inspection - Neurological Exam Neurological Exam: Alert, Awake, CN II-XII Intact, Oriented x3 - Psychiatric Exam Psychiatric exam: Normal Affect, Normal Mood - Skin Skin Exam: Dry, Intact, Normal Color, Warm Assessment and Plan - Assessment and Plan (Free Text) Assessment: 61F POD#3 s/p ventral hernia repair w/mesh, doing well, having flatus Plan: Advanced from CLD to FLD, monitor for tolerance, will continue to advance if tolerating diet OOBTC Cont pain mgmt Ambulate with assistance Encourage IS use On GI/DVT ppx DW attending Lily, PGY-1
[2017-03-23 07:53] VITALS: BP 109/71; PULSE 85; RESP 20; TEMP 98; O2SAT 96
[2017-03-23 08:19] LABS: BASO # 0.1 K/uL (0.0-0.2); BASO % 0.6 % (0.0-2.0); EOS # 0.8 K/uL (0.0-0.7); HEMATOCRIT 33.7 % (34.0-47.0); LYMPH # 2.1 K/uL (1.0-4.3); LYMPH % 19.1 % (20.0-40.0); MEAN CELL VOLUME 85.3 fL (81.0-99.0); MEAN CORPUSCULAR HEMOGLOBIN 28.4 pg (27.0-31.0); MEAN CORPUSCULAR HGB CONC 33.3 g/dL (33.0-37.0); MEAN PLATELET VOLUME 8.1 fL (7.2-11.7); MONO # 0.8 K/uL (0.0-0.8); MONO % 7.8 % (0.0-10.0); NRBC % 0.1 % (0.0-2.0); RED CELL DISTRIBUTION WIDTH 14.3 % (11.5-14.5); WHITE BLOOD COUNT 10.9 K/uL (4.8-10.8)
[2017-03-23 09:02] LABS: ALB/GLOB RATIO 0.9 (1.0-2.1); ALKALINE PHOSPHATASE 67 U/L (38-126); ALT/SGPT 51 U/L (9-52); AST/SGOT 31 U/L (14-36); BILIRUBIN,TOTAL 0.3 mg/dL (0.2-1.3); BLOOD UREA NITROGEN 15 mg/dL (7-17); CALCIUM 7.6 mg/dl (8.6-10.4); CARBON DIOXIDE 26 mmol/L (22-30); CHLORIDE 104 mmol/L (98-107); GFR AFRICAN-AMERICAN > 60; GLUCOSE,RANDOM 96 mg/dL (65-105); POTASSIUM 4.2 mmol/L (3.6-5.2); SODIUM 136 mmol/L (132-148)
[2017-03-23] MEDS: Enoxaparin 40 mg Syringe SC SCH (10:02)
--- NOTE | 2017-03-23 11:48 | CP.PCM.DIS ---
Provider - Provider Date of Admission: 03/18/17 18:41 Attending physician: Jerry Krause MD Time Spent in preparation of Discharge (in minutes): 30 Diagnosis - Discharge Diagnosis (1) Incisional hernia of anterior abdominal wall with obstruction Status: Acute Priority: High Onset Date: ~03/14/17 Hospital Course - Lab Results Lab Results: Most Recent Lab Values WBC 10.9 K/uL (4.8-10.8) H 03/23/17 08:09 RBC 3.95 Mil/uL (3.80-5.20) 03/23/17 08:09 Hgb 11.2 g/dL (11.0-16.0) 03/23/17 08:09 Hct 33.7 % (34.0-47.0) L 03/23/17 08:09 MCV 85.3 fL (81.0-99.0) 03/23/17 08:09 MCH 28.4 pg (27.0-31.0) 03/23/17 08:09 MCHC 33.3 g/dL (33.0-37.0) 03/23/17 08:09 RDW 14.3 % (11.5-14.5) 03/23/17 08:09 Plt Count 371 K/uL (130-400) 03/23/17 08:09 MPV 8.1 fL (7.2-11.7) 03/23/17 08:09 Neut % (Auto) 65.5 % (50.0-75.0) 03/23/17 08:09 Lymph % (Auto) 19.1 % (20.0-40.0) L 03/23/17 08:09 [place] % (Auto) 7.8 % (0.0-10.0) 03/23/17 08:09 Eos % (Auto) 7.0 % (0.0-4.0) H 03/23/17 08:09 Baso % (Auto) 0.6 % (0.0-2.0) 03/23/17 08:09 Neut # 7.1 K/uL (1.8-7.0) H 03/23/17 08:09 Lymph # 2.1 K/uL (1.0-4.3) 03/23/17 08:09 [place] # 0.8 K/uL (0.0-0.8) 03/23/17 08:09 Eos # 0.8 K/uL (0.0-0.7) H 03/23/17 08:09 Baso # 0.1 K/uL (0.0-0.2) 03/23/17 08:09 PT 13.5 SECONDS (9.7-12.2) H 03/19/17 06:55 INR 1.2 03/19/17 06:55 APTT 29 SECONDS (21-34) 03/19/17 06:55 Sodium 136 mmol/L (132-148) 03/23/17 08:09 Potassium 4.2 mmol/L (3.6-5.2) 03/23/17 08:09 Chloride 104 mmol/L (98-107) 03/23/17 08:09 Carbon Dioxide 26 mmol/L (22-30) 03/23/17 08:09 Anion Gap 9 (10-20) L 03/23/17 08:09 BUN 15 mg/dL (7-17) 03/23/17 08:09 Creatinine 0.6 mg/dL (0.7-1.2) L 03/23/17 08:09 Est GFR ( Amer) > 60 03/23/17 08:09 Est GFR (Non-Af Amer) > 60 03/23/17 08:09 Random Glucose 96 mg/dL (65-105) 03/23/17 08:09 Calcium 7.6 mg/dl (8.6-10.4) L 03/23/17 08:09 Phosphorus 3.6 mg/dL (2.5-4.5) 03/18/17 19:01 Magnesium 1.9 mg/dL (1.6-2.3) 03/18/17 19:01 Total Bilirubin 0.3 mg/dL (0.2-1.3) 03/23/17 08:09 AST 31 U/L (14-36) 03/23/17 08:09 ALT 51 U/L (9-52) 03/23/17 08:09 Alkaline Phosphatase 67 U/L (38-126) 03/23/17 08:09 Troponin I < 0.0120 ng/mL (0.00-0.120) 03/18/17 15:09 Total Protein 6.0 g/dL (6.3-8.3) L 03/23/17 08:09 Albumin 2.9 g/dL (3.5-5.0) L 03/23/17 08:09 Globulin 3.1 gm/dL (2.2-3.9) 03/23/17 08:09 Albumin/Globulin Ratio 0.9 (1.0-2.1) L 03/23/17 08:09 Lipase 32 U/L (23-300) 03/18/17 15:09 Urine Color Yellow (YELLOW) 03/18/17 16:43 Urine Clarity Hazy (Clear) 03/18/17 16:43 Urine pH 5.0 (5.0-8.0) 03/18/17 16:43 Ur Specific [place] 1.031 (1.003-1.030) H 03/18/17 16:43 Urine Protein 2+ mg/dL (NEGATIVE) H 03/18/17 16:43 Urine Glucose (UA) Normal mg/dL (Normal) 03/18/17 16:43 Urine Ketones 1+ mg/dL (NEGATIVE) H 03/18/17 16:43 Urine Blood Negative (NEGATIVE) 03/18/17 16:43 Urine Nitrate Negative (NEGATIVE) 03/18/17 16:43 Urine Bilirubin Negative (NEGATIVE) 03/18/17 16:43 Urine Urobilinogen 2.0 mg/dL (0.2-1.0) H 03/18/17 16:43 Ur Leukocyte Esterase Neg Caio/uL (Negative) 03/18/17 16:43 Urine WBC (Auto) 3 /hpf (0-5) 03/18/17 16:43 Urine RBC (Auto) 2 /hpf (0-3) 03/18/17 16:43 Ur Squamous Epith Cells 16 /hpf (0-5) H 03/18/17 16:43 Urine Bacteria Occ (<OCC) H 03/18/17 16:43 - Hospital Course Hospital Course: Patient admitted with recently diagnosed anterior abdominal wall hernia close to umbilicus, with vomiting and increasing generalized abdominal pain. CT scan 2 days prior to admission noted incarcerated small bowel and transverse colon. Patient underwent repair of hernia with large underlay mesh patch. Hernia contained transverse colon with focal ecchymosis, no strangulation, no resection required. Postop course uneventful with return of GI function. Drain with decreasing output removed prior to discharge. - Date & Time of H&P Date of H&P: 04/14/17 Time of H&P: 15:00 Discharge Exam - Head Exam Head Exam: ATRAUMATIC, NORMAL INSPECTION, NORMOCEPHALIC - Eye Exam Pupil Exam: PERRL - ENT Exam ENT Exam: Mucous Membranes Moist, Normal Exam - Neck Exam Neck exam: Full Rom - Respiratory Exam Respiratory Exam: NORMAL BREATHING PATTERN, UNREMARKABLE - Cardiovascular Exam Cardiovascular Exam: REGULAR RHYTHM - GI/Abdominal Exam Additional comments: Obese. Surgical incision clean with cornelio intact. Mild swelling above umbilicus at hernia site. Discharge Plan - Discharge Medications Prescriptions: oxyCODONE/Acetaminophen [Percocet 5/325 mg Tab] 1 tab PO Q4H PRN #14 tab PRN Reason: Pain, Moderate (4-7) - Follow Up Plan Condition: FAIR Disposition: HOME/ ROUTINE
[2017-03-23] MEDS ORDERED: Influenza Vaccine 60 mcg/0.5 mL SYR (4YR UP) IM ONE (13:35)
== END 2017-03-23 16:29 | disposition home or self-care (01) | DRG 160 ==
LOC: C.ER 12:09 → C.9E 18:41 → C.3T 23:14
PROVIDERS: ADMIT Specialist; ATTEND Specialist
PROC: 0WUF0JZ Supplement Abdominal Wall with Synthetic Substitute, Open Approach (ICD-10-PCS; principal; 2017-03-19 15:00)
DX: K43.0 Incisional hernia with obstruction, without gangrene (principal); K42.9 Umbilical hernia without obstruction or gangrene; Z68.41 Body mass index [BMI] 40.0-44.9, adult; I10 Essential (primary) hypertension; Z90.49 Acquired absence of other specified parts of digestive tract; Z87.01 Personal history of pneumonia (recurrent)

== ENCOUNTER 2017-04-02 15:31 | Emergency (ER) | payer MEDICAID ==
[2017-04-02 15:31] VITALS: BMI 46.3
[2017-04-02 15:48] VITALS: BP 144/85; PULSE 85; RESP 18; TEMP 97.6; O2SAT 95
--- NOTE | 2017-04-02 16:12 | C.PDOC ---
History Of Present Illness 61 year old female with PMHx of HTN presents to the ED for a wound check. Patient states she had large hernia small bowel obstruction removed 2 weeks ago since then she has been having normal stools, ambulating with no problem and reports not issues with the wound. Patient reports today she noticed while changing pads she started dripping blood and soaked 2 pads with blood. Patient reports she went to see Dr. Krause who performed the surgery last Friday and is supposed to see her this Friday but presented today worried she might have burst a staple. Patient reports she is only taking Percocet and Atenolol and denies taking any anticoagulants. Time Seen by Provider: 04/02/17 15:35 Chief Complaint (Nursing): Wound Check History Per: Patient History/Exam Limitations: no limitations Onset/Duration Of Symptoms: Days Ago Current Symptoms Are (Timing): Still Present Location Of Injury: Anterior: Abdomen (Midline) Quality Of Symptoms: Painful, Itching Severity: None Recent travel outside of the [place]: No Additional History Per: Patient Past Medical History Reviewed: Historical Data, Nursing Documentation, Vital Signs Vital Signs: Last Vital Signs Temp 97.6 F 04/02/17 15:41 Pulse 85 04/02/17 15:41 Resp 18 04/02/17 15:41 BP 144/85 04/02/17 15:41 Pulse Ox 95 04/02/17 16:17 - Medical History PMH: Arthritis (BACK), Gall Bladder Disease, HTN, Pneumonia (three yrs ago) Denies: Chronic Kidney Disease Surgical History: Cholecystectomy - [facility] Procedures CLOSURE SKIN & SUBCUTANEOUS NEC (01/22/07) ENDOSCOPIC REMOVAL OF STONE(S) FROM BILIARY TRACT (01/04/15) ENDOSCOPIC SPHINCTEROTOMY AND PAPILLOTOMY (01/04/15) INTRAOPER CHOLANGIOGRAM (01/04/15) LAPAROSCOPIC CHOLECYSTECTOMY (01/04/15) SUPPLEMENT ABDOMINAL WALL WITH SYNTH SUB, OPEN APPROACH (03/18/17) Family History: States: Unknown Family Hx - Social History Hx Alcohol Use: No Hx Substance Use: No - Immunization History Hx Tetanus Toxoid Vaccination: No Hx Influenza Vaccination: No Hx Pneumococcal Vaccination: No Review Of Systems Constitutional: Negative for: Fever, Chills Cardiovascular: Negative for: Chest Pain, Palpitations Respiratory: Negative for: Cough, Shortness of Breath Gastrointestinal: Negative for: Nausea, Vomiting, Abdominal Pain, Constipation Genitourinary: Negative for: Dysuria, Hematuria Musculoskeletal: Positive for: Back Pain Neurological: Negative for: Weakness, Numbness, Headache Physical Exam - Physical Exam Appears: Non-toxic, No Acute Distress, Other (Obese) Skin: Normal Color, Warm, Dry Head: Atraumatic, Normacephalic Nose: No Discharge Oral Mucosa: Moist Neck: Normal ROM, Supple Chest: Symmetrical Cardiovascular: Rhythm Regular, No Murmur Respiratory: Normal Breath Sounds, No Rales, No Rhonchi, No Wheezing Gastrointestinal/Abdominal: Soft, No Tenderness, Other (Midline surgical wound, palpable subcutaneous hematoma, wound healing well no infection, resolving bruisng and all cornelio are intact) Extremity: Normal ROM, No Pedal Edema, No Calf Tenderness, No Swelling Neurological/Psych: Oriented x3, Normal Speech, Normal Cognition Gait: Steady ED Course And Treatment O2 Sat by Pulse Oximetry: 95 (On RA) Pulse Ox Interpretation: Normal Disposition Doctor Will See Patient In The: Office - Disposition Disposition: HOME/ ROUTINE Disposition Time: 16:30 Condition: STABLE Forms: [employer] (Polish) - Clinical Impression Clinical Impression: Wound disruption, post-op, skin - Scribe Statement The provider has reviewed the documentation as recorded by the Scribe Manuel Robb All medical record entries made by the Scribe were at my direction and personally dictated by me. I have reviewed the chart and agree that the record accurately reflects my personal performance of the history, physical exam, medical decision making, and the department course for this patient. I have also personally directed, reviewed, and agree with the discharge instructions and disposition.
== END 2017-04-02 16:37 | disposition home or self-care (01) ==
LOC: C.ER 15:31
DX: T81.30XA Disruption of wound, unspecified, initial encounter (principal); Y83.8 Other surgical procedures as the cause of abnormal reaction of the patient, or of later complication, without mention of misadventure at the time of the procedure; Y92.89 Other specified places as the place of occurrence of the external cause